=== PATIENT | male | born 1990 | race American Indian/Alaskan Native ===

== ENCOUNTER 2020-05-04 23:15 | Emergency (ER) | payer SELFPAY ==
[2020-05-05] MEDS ORDERED: ACETAMINOPHEN 325 MG TAB ONE (00:09)
[2020-05-05 00:12] VITALS: BP 142/101
[2020-05-05] MEDS ORDERED: ACETAMINOPHEN 325 MG TAB PO ONE (00:18)
[2020-05-05] MEDS ORDERED: LIDOCAINE (1%) 10 MG/1 ML VIAL 20 ML MDV INFILTRATI ONE (00:41)
[2020-05-05] MEDS ORDERED: HYDROcodone/ACETAMINOPHEN 7.5-325MG TAB PO ONE (00:41)
[2020-05-05] MEDS ORDERED: DIPHtheria,PERTUSSIS(ACELL),TETANUS VACCINE/PF 0.5 ML VIAL IM ONE (00:41)
[2020-05-05] MEDS ORDERED: IBUPROFEN 600 MG TAB PO ONE (00:41)
--- NOTE | 2020-05-05 01:33 | XRay Report ---
RIGHT HAND 3 VIEWS 032 INDICATION: Fall, finger injury COMPARISON: None available. FINDINGS: Bandaging is seen on the ring finger distally. A mildly comminuted fracture of the tuft of the distal phalanx of the ring finger is seen with distal displacement of the major fragment. No disl ocation is seen. No other fractures are noted. Soft tissue laceration is seen in the distal phalanx. Signer Name: Jaden Finnegan MD Signed: 05/05/2020 1:28 AM Workstation Name: [id number]
--- NOTE | 2020-05-05 01:52 | Emergency Department Report ---
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 Patient states that the wound was dressed at the facility by the company nurse and he was then referred to the ED for evaluation. Patient states that he is unable to perform any active range of motion with the right ring finger because of severe pain. Patient states that he is not up-to-date with his tetanus vaccinations. Patient denies numbness and tingling or weakness of right hand or right ring finger, fall, dizziness, syncope, nausea and vomiting or chest pain or shortness of breath or wrist pain. MD Complaint: Injury to:: right, hand, finger (right finger) -: Sudden, hour(s) (2) Other Extremity Injury: Fingers: Right (right finger injury and pain; laceration), Hand: Right (pain) Other Injuries: none Place: work Severity scale (0 -10): 8 Improves With: none Worsens With: movement of extremity Context: direct blow, crush (right ring finger crushed between forklift and metallic beam), injury Associated Symptoms: denies other symptoms. denies: weakness, numbness, neck pain, suspects foreign body, nausea/vomiting, heard/felt popping sensat Treatments Prior to Arrival: bandage - Related Data Previous Rx's Medication Instructions Recorded Last Taken Type Acetaminophen/Codeine [Tylenol 1 tab PO Q6H PRN #12 tab 05/05/20 Unknown Rx /Codeine # 3 tab] Ibuprofen [Motrin] 800 mg PO Q8HR PRN #30 tablet 05/05/20 Unknown Rx cephALEXin [Keflex] 500 mg PO Q8HR #30 cap 05/05/20 Unknown Rx Allergies Allergy/AdvReac Type Severity Reaction Status Date / Time No Known Allergies Allergy Verified 08/03/16 22:16 ED Review of Systems ROS: Stated complaint: FINGER INJURY (RIGHT) Other details as noted in HPI Constitutional: denies: chills, fever Eyes: denies: eye pain, eye discharge, vision change ENT: denies: ear pain, throat pain Respiratory: denies: cough, shortness of breath, wheezing Cardiovascular: denies: chest pain, palpitations Endocrine: no symptoms reported Gastrointestinal: denies: abdominal pain, nausea, diarrhea Genitourinary: denies: urgency, dysuria Musculoskeletal: joint swelling (right ring finger), arthralgia (right ring finger pain, laceration and nail avulsion), myalgia. denies: back pain Skin: other (Bleeding distal right ring finger laceration and partial nail avulsion). denies: rash, lesions Neurological: denies: headache, weakness, paresthesias Psychiatric: denies: anxiety, depression Hematological/Lymphatic: denies: easy bleeding, easy bruising ED Past Medical Hx - Past Medical History Previous Medical History?: No - Surgical History Past Surgical History?: No - Social History Smoking Status: Never Smoker Substance Use Type: None - Medications Home Medications: Home Medications Medication Instructions Recorded Confirmed Last Taken Type Acetaminophen/Codeine [Tylenol 1 tab PO Q6H PRN #12 tab 05/05/20 Unknown Rx /Codeine # 3 tab] Ibuprofen [Motrin] 800 mg PO Q8HR PRN #30 tablet 05/05/20 Unknown Rx cephALEXin [Keflex] 500 mg PO Q8HR #30 cap 05/05/20 Unknown Rx ED Physical Exam - General Limitations: No Limitations General appearance: alert, in no apparent distress - Head Head exam: Present: atraumatic, normocephalic, normal inspection - Eye Eye exam: Present: normal appearance, PERRL, EOMI Pupils: Present: normal accommodation - ENT ENT exam: Present: normal exam, normal orophraynx, mucous membranes moist, TM's normal bilaterally, normal external ear exam - Neck Neck exam: Present: normal inspection, full ROM - Respiratory Respiratory exam: Present: normal lung sounds bilaterally. Absent: respiratory distress, wheezes, rales, rhonchi, stridor, chest wall tenderness, accessory muscle use, decreased breath sounds, prolonged expiratory - Cardiovascular Cardiovascular Exam: Present: regular rate, normal rhythm, normal heart sounds. Absent: systolic murmur, diastolic murmur, rubs, gallop - GI/Abdominal GI/Abdominal exam: Present: soft, normal bowel sounds. Absent: tenderness, guarding, rebound, hyperactive bowel sounds, hypoactive bowel sounds, organomegaly - Extremities Exam Extremities exam: Present: normal inspection, full ROM, tenderness (Palpable right ring finger tenderness, mild deformity and 5 cm laceration with partial nail avulsion), normal capillary refill, joint swelling. Absent: pedal edema, calf tenderness - Back Exam Back exam: Present: normal inspection, full ROM. Absent: tenderness, CVA tenderness (R), CVA tenderness (L), muscle spasm, paraspinal tenderness, vertebral tenderness - Neurological Exam Neurological exam: Present: alert, oriented X3, CN II-XII intact, normal gait, reflexes normal - Psychiatric Psychiatric exam: Present: normal affect, normal mood - Skin Skin exam: Present: warm, dry, intact, normal color, other (Bleeding distal right ring finger 5 cm laceration and partial nail avulsion). Absent: rash ED Course Vital Signs 05/05/20 05/05/20 00:06 00:55 Temperature 97.8 F Pulse Rate 66 Respiratory 18 20 Rate Blood Pressure 142/101 O2 Sat by Pulse 97 Oximetry - Laceration /Wound Repair Right Distal Dorsal Finger Wound Location: upper extremity (distal right ring finger laceration with partial nail avulsion) Wound Length (cm): 5 Wound's Depth, Shape: into muscle, irregular, nail-avulsed Wound Explored: contaminated Betadine Prep?: Yes Anesthesia: 1% Lidocaine Volume Anesthetic (ccs): 7 Wound Debrided: extensive Wound Repaired With: sutures Suture Size/Type: 3:0, proline Number of Sutures: 12 Layer Closure?: No Sterile Dressing Applied?: Yes Progress: Patient tolerated the procedure well. Neosporin ointment was applied to the wound after suturing. The finger was splinted with finger splint. Patient was discharged home on pain medication, prophylactic antibiotics and given a referral to the orthopedic surgeon erosion control coordinator Dr. Mondragon for further evaluation. Patient was advised to contact Dr. Mondragon's office first thing in the morning May 05, 2020 to schedule a follow-up appointment. Patient was also advised to return to the ED immediately if symptoms get worse. ED Medical Decision Making - Radiology Data Radiology results: report reviewed, image reviewed Findings [facility] [address] [place] [address] XRay Report Signed Patient: RADHA LORD JR MR#: [id number] : 1990 Acct:[id number] Age/Sex: 29 / M ADM Date: 05/04/20 Loc: ED Attending Dr: Ordering Physician: VERONICA CALLAWAY MD Date of Service: 05/05/20 Procedure(s): XR hand 3+V RT Accession Number(s): [id number] cc: VERONICA CALLAWAY MD Fluoro Time In Minutes: RIGHT HAND 3 VIEWS 032 INDICATION: Fall, finger injury COMPARISON: None available. FINDINGS: Bandaging is seen on the ring finger distally. A mildly comminuted fracture of the tuft of the distal phalanx of the ring finger is seen with distal displacement of the major fragment. No dislocation is seen. No other fractures are noted. Soft tissue laceration is seen in the distal phalanx. 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 Patient states that the wound was dressed at the facility by the company nurse and he was then referred to the ED for evaluation. Patient states that he is unable to perform any active range of motion with the right ring finger because of severe pain. Patient states that he is not up-to-date with his tetanus vaccinations. In the ED, patient is alert and oriented x3 and is not in distress. Patient was treated for pain in the ED. Patient also received booster tetanus vaccination in the ED. right hand x-ray shows a mildly comminuted fracture of the tuft of the distal phalanx of the ring finger is seen with distal displacement of the major fragment. No dislocation is seen. No other fractures are noted. Soft tissue laceration is seen in the distal phalanx. The distal right ring finger laceration was sutured per protocol and the nail also position in place. Patient tolerated the procedure well. The wound was then cleaned thoroughly and dressed appropriately after application of a topical Neosporin antibiotic. The right ring finger was splinted with a finger splint and the patient was discharged home with a referral to the orthopedic surgeon Dr. Mondragon for follow- up. Patient was advised to contact Dr. Mondragon's office first thing this morning on May 05, 2020 to schedule a follow-up appointment. Patient was therefore discharged home on oral antibiotics and pain medications and was advised return to the ED immediately if symptoms get worse. - Differential Diagnosis Finger fracture; Laceration; Hand contusion; Nail avulsion Critical care attestation.: If time is entered above; I have spent that time in minutes in the direct care of this critically ill patient, excluding procedure time. ED Disposition Clinical Impression: Displaced fracture of distal phalanx of right ring finger Qualifiers: Encounter type: initial encounter Fracture type: open Qualified Code(s): S62.634B - Displaced fracture of distal phalanx of right ring finger, initial encounter for open fracture Contusion of right hand including fingers Qualifiers: Encounter type: initial encounter Qualified Code(s): S60.221A - Contusion of right hand, initial encounter Laceration of right ring finger with damage to nail Qualifiers: Encounter type: initial encounter Foreign body presence: without foreign body Qualified Code(s): S61.314A - Laceration without foreign body of right ring finger with damage to nail, initial encounter Disposition: DC-01 TO HOME OR SELFCARE Is pt being admited?: No Does the pt Need Aspirin: No Condition: Stable Instructions: Laceration (ED), Finger Fracture (ED), Contusion in Adults (ED) Additional Instructions: Your x-ray showed distal right ring finger fracture with nail avulsion. Therefore take medication with food, drink plenty of fluids and follow-up with the orthopedic surgeon Dr. Mondragon for further evaluation. Contact Dr. Mondragon's office first thing this morning May 05, 2020 to schedule a follow-up appointment. Return to the ED immediately if symptoms get worse. Prescriptions: cephALEXin [Keflex] 500 mg PO Q8HR #30 cap Ibuprofen [Motrin] 800 mg PO Q8HR PRN #30 tablet PRN Reason: Pain , Severe (7-10) Acetaminophen/Codeine [Tylenol /Codeine # 3 tab] 1 tab PO Q6H PRN #12 tab PRN Reason: Pain , Severe (7-10) Referrals: BALJINDER MONDRAGON MD [Staff Physician] - [facility] Time of Disposition: 01:55 Print Language: [place]
[2020-05-05] MEDS ORDERED: ceFAZolin 1 GM VIAL IM ONE (01:55)
[2020-05-05] MEDS ORDERED: NEOMY 3.5 MG/BACIT 400 UNITS/POLY B 5000 UNITS/GM OINT PACKET TP ONE (01:55)
== END 2020-05-05 03:42 | disposition home or self-care (01) ==
LOC: ED 23:15
DX: S62.634A Displaced fracture of distal phalanx of right ring finger, initial encounter for closed fracture (principal); S61.314A Laceration without foreign body of right ring finger with damage to nail, initial encounter
CPT/HCPCS: 12042; 73130; 90471; 90715; 96372; 99283; J0690; A6250